=== PATIENT | male | born 1960 | race Caucasian/White ===

== ENCOUNTER 2020-02-26 15:18 | Observation (INO) ==
[2020-02-26] MEDS ORDERED: AZITHROMYCIN INJ 500 MG in SODIUM CHLORIDE 0.9% 250 ML IV STA (16:21)
[2020-02-26] MEDS ORDERED: cefTRIAXone 1,000 MG in SODIUM CHLORIDE 0.9% 100 ML IV STA (16:21)
[2020-02-26] MEDS ORDERED: ACETAMINOPHEN 500 MG TABLET PO STA (16:21)
[2020-02-26 16:36] LABS: Basophils % 0.4 % (0.0-0.8); Eosinophils # 0.1 10*3/uL (0.0-0.87); Eosinophils % 1.9 % (0.00-10.9); Hematocrit 32.6 VOL% (42.0-52.0); Hemoglobin 10.4 GM/DL (14.0-18.0); Immature Granulocytes % 5.4 %; Immature Granulocytes Absolute 0.14 #; Lymphocytes # 0.3 10*3/uL (1.4-4.0); Lymphocytes % 12.7 % (21.2-54.2); Mean Corpuscular HGB Conc 31.9 GM/DL (32-36); Mean Corpuscular Volume 84.2 FL (87-102); Mean Platelet Volume 9.6 FL (9.6-12.0); Monocytes % 12.7 % (1.7-12.7); Neutrophils % 66.9 % (38.7-73.9); Platelet Count 103 T/CUMM (130-400); Red Blood Count 3.87 MC/CUMM (3.8-5.5); Red Cell Distribution Width 13.9 % (9.3-17.3); White Blood Count 2.6 T/CUMM (4-12)
[2020-02-26 16:52] LABS: Alanine Aminotransferase 56 U/L (16-61); Albumin 2.4 G/DL (3.4-5.0); Alkaline Phosphatase 65 U/L (45-117); Aspartate Amino Transferase 27 U/L (0-37); Bilirubin,Total < 0.39 MG/DL (0.2-1.0); Blood Urea Nitrogen 5 MG/DL (7-18); Calcium 8.2 MG/DL (8.5-10.1); Estimated Glom Filtration Rate 102 ML/MIN; Glucose 134 MG/DL (74-106); Osmolality,Calculated 275.5 MOS/KG (273-304); Total Protein 6.9 G/DL (6.4-8.3)
[2020-02-26 17:53] LABS: Band Neutrophils 1 % (0-10); Hypochromasia 2+; Lymphocytes 14 % (20-55); Metamyelocytes 2 %; Microcytosis Slight; Myelocytes 1 %; Polychromasia Slight; Segmented Neutrophils 76 % (50-85); Total Cells Counted 100
[2020-02-26 17:54] LABS: Apearance,Urine CLEAR (Clear); Bilirubin,Urine Negative (Negative); Blood, Urine Negative (Negative); Glucose,Urine (UA) 50 mg/dL (Negative); Ketones,Urine Negative (Negative); Mucus,Urine Occasional /LPF (Occasional); Nitrite,Urine Negative (Negative); Protein,Urine Negative; RBC,Urine <1 /HPF (0-4); Urine Color Yellow (Yellow); Urine Specific Gravity 1.017 (1.001-1.035); WBC,Urine 1 /HPF (0-6)
[2020-02-26 17:54] LABS: Platelet Estimate Adequate
[2020-02-26] MEDS ORDERED: ONDANSETRON 4 MG/2 ML VIAL IV PRN (18:01)
[2020-02-26] MEDS ORDERED: DEXTROSE 10% 250 ML BAG IV PRN (18:01)
[2020-02-26] MEDS ORDERED: GLUCAGON 1 MG VIAL IM PRN (18:01)
[2020-02-26] MEDS: ENOXAPARIN 40 MG/0.4 ML SYRINGE SUBCUT SCH (22:01)
[2020-02-26] MEDS: HYDROXYCHLOROQUINE 200 MG TABLET PO SCH (22:02)
[2020-02-26] MEDS: ZINC SULFATE 220 MG CAPSULE PO SCH (22:10)
[2020-02-27] MEDS: PANTOPRAZOLE 40 MG TABLET PO SCH (08:41)
[2020-02-27] MEDS: ALBUTEROL INHALER 8 GM INH SCH ×3 (08:41→20:32)
[2020-02-27] MEDS: HYDROXYCHLOROQUINE 200 MG TABLET PO SCH ×2 (08:41→20:31)
[2020-02-27 13:02] LABS: Basophils % 0.4 % (0.0-0.8); Eosinophils % 1.7 % (0.00-10.9); Hematocrit 31.6 VOL% (42.0-52.0); Hemoglobin 10.1 GM/DL (14.0-18.0); Immature Granulocytes % 3.8 %; Immature Granulocytes Absolute 0.09 #; Lymphocytes # 0.3 10*3/uL (1.4-4.0); Lymphocytes % 13.1 % (21.2-54.2); Mean Corpuscular Volume 81.9 FL (87-102); Mean Platelet Volume 9.4 FL (9.6-12.0); Monocytes % 5.9 % (1.7-12.7); Neutrophils % 75.1 % (38.7-73.9); Platelet Count 109 T/CUMM (130-400); Red Blood Count 3.86 MC/CUMM (3.8-5.5); Red Cell Distribution Width 14.1 % (9.3-17.3); White Blood Count 2.4 T/CUMM (4-12)
[2020-02-27 13:16] LABS: Alanine Aminotransferase 48 U/L (16-61); Albumin 2.2 G/DL (3.4-5.0); Alkaline Phosphatase 63 U/L (45-117); Aspartate Amino Transferase 24 U/L (0-37); Bilirubin,Total < 0.39 MG/DL (0.2-1.0); Blood Urea Nitrogen 9 MG/DL (7-18); Calcium 8.1 MG/DL (8.5-10.1); Estimated Glom Filtration Rate 103 ML/MIN; Glucose 159 MG/DL (74-106); Osmolality,Calculated 276.7 MOS/KG (273-304); Total Protein 6.6 G/DL (6.4-8.3)
[2020-02-27 13:25] LABS: Ferritin 132.4 ng/ml (26-388)
[2020-02-27] MEDS ORDERED: cefTRIAXone 1,000 MG in SYRINGE 1 EACH IV SCH (17:00)
[2020-02-27] MEDS: ENOXAPARIN 40 MG/0.4 ML SYRINGE SUBCUT SCH (20:31)
[2020-02-28] MEDS: ALBUTEROL INHALER 8 GM INH SCH ×2 (01:00→10:26)
[2020-02-28 06:42] LABS: Basophils % 0.4 % (0.0-0.8); Eosinophils % 1.4 % (0.00-10.9); Hematocrit 34.5 VOL% (42.0-52.0); Hemoglobin 10.7 GM/DL (14.0-18.0); Immature Granulocytes Absolute 0.17 #; Lymphocytes # 0.4 10*3/uL (1.4-4.0); Lymphocytes % 15.6 % (21.2-54.2); Mean Corpuscular Volume 85.6 FL (87-102); Mean Platelet Volume 9.5 FL (9.6-12.0); Monocytes % 6.4 % (1.7-12.7); Neutrophils % 70.2 % (38.7-73.9); Platelet Count 116 T/CUMM (130-400); Red Blood Count 4.03 MC/CUMM (3.8-5.5); Red Cell Distribution Width 14.1 % (9.3-17.3); White Blood Count 2.8 T/CUMM (4-12)
[2020-02-28 06:57] LABS: Calcium 8.7 MG/DL (8.5-10.1); Osmolality,Calculated 271.8 MOS/KG (273-304)
[2020-02-28 07:59] LABS: Band Neutrophils 11 % (0-10); Eosinophils 4 % (0-10); Lymphocytes 11 % (20-55); Metamyelocytes 4 %; Myelocytes 1 %; Platelet Estimate Adequate; Segmented Neutrophils 64 % (50-85); Total Cells Counted 100
[2020-02-28 08:00] LABS: Anisocytosis 1+; Smudge Cells Few; Spherocytes Few
[2020-02-28] MEDS: HYDROXYCHLOROQUINE 200 MG TABLET PO SCH (10:26)
[2020-02-28] MEDS: PANTOPRAZOLE 40 MG TABLET PO SCH (10:26)
[2020-02-28] MEDS: ZINC SULFATE 220 MG CAPSULE PO SCH (10:26)
[2020-02-28 10:34] VITALS: BP 132/76
== END 2020-02-28 11:30 | disposition home or self-care (01) ==
LOC: N.EDINP 15:18 → N.ED 15:18 → SUATTDRO 18:01 → N.2E 19:00
PROVIDERS: ADMIT Nurse Practitioner Family; ATTEND Internal Medicine